=== PATIENT | male | born 1985 | race Caucasian/White ===

== ENCOUNTER 2022-05-26 20:33 | Emergency (ER) | payer OTHER ==
[2022-05-26 20:37] VITALS: BP 163/79; PULSE 63; RESP 18; TEMP 98.6; BMI 29.2
[2022-05-26 22:27] LABS: BASO % 0.6 % (0-2.0); HEMATOCRIT 48.1 % (35.4-49); HEMOGLOBIN 15.7 GM/dL (11.7-16.9); LYMPH % 34.4 % (8-40); MCH 29.2 pg (25.7-33.7); MCHC 32.6 g/dl (32.0-35.9); MEAN CELL VOLUME 89.4 fl (80-96); MONO % 7.2 % (3.8-10.2); NEUT % 56.8 % (42.8-82.8); PLATELET COUNT 336 10^3/uL (134-434); RBC 5.38 M/mm3 (4.00-5.60); RDW 12.7 % (11.9-15.9); WHITE BLOOD COUNT 6.5 K/mm3 (4.0-10.0)
[2022-05-26 22:34] LABS: INR 1.19 (0.83-1.09); PROTHROMBIN TIME (PATIENT) 13.7 SEC (9.7-13.0)
[2022-05-26 22:36] LABS: ACTIVATED PTT 35.2 SECONDS (25.2-36.5)
[2022-05-26 22:50] LABS: ALBUMIN 4.3 g/dl (3.4-5.0); CALCIUM 9.4 mg/dL (8.5-10.1)
[2022-05-26 22:53] LABS: CREATININE 0.8 mg/dL (0.55-1.3)
[2022-05-26 22:55] LABS: BILIRUBIN,TOTAL 0.7 mg/dL (0.2-1); TOT PROT 7.7 g/dl (6.4-8.2)
== END 2022-05-26 23:20 | disposition home or self-care (01) ==
LOC: JER 20:33
DX: K62.5 Hemorrhage of anus and rectum (principal)
CPT/HCPCS: 36415; 80053; 82272; 85025; 85610; 85730; 99283-25

== ENCOUNTER 2024-03-02 09:40 | Emergency (ER) | payer SELFPAY ==
[2024-03-02 09:50] VITALS: BP 170/96; PULSE 77; RESP 17; TEMP 99.1; BMI 32.9
[2024-03-02 11:42] LABS: BASO % 0.5 % (0-2.0); EOS % 0.2 % (0-4.5); HEMATOCRIT 47.5 % (35.4-49); HEMOGLOBIN 15.9 GM/dL (11.7-16.9); LYMPH % 23.5 % (8-40); MCH 29.6 pg (25.7-33.7); MCHC 33.3 g/dl (32.0-35.9); MEAN CELL VOLUME 88.7 fl (80-96); MEAN PLT VOLUME 8.8 fl (7.5-11.1); MONO % 3.9 % (3.8-10.2); NEUT % 71.9 % (42.8-82.8); PLATELET COUNT 290 10^3/uL (134-434); RBC 5.36 M/mm3 (4.00-5.60); RDW 12.8 % (11.9-15.9); WHITE BLOOD COUNT 6.8 K/mm3 (4.0-10.0)
[2024-03-02 12:01] LABS: POTASSIUM 4.1 mmol/L (3.5-5.1)
[2024-03-02 12:04] LABS: CALCIUM 9.5 mg/dL (8.5-10.1)
[2024-03-02 12:05] LABS: ALBUMIN 4.5 g/dl (3.4-5.0); BLOOD UREA NITROGEN 14.4 mg/dL (7-18); MAGNESIUM 2.3 mg/dL (1.8-2.4)
[2024-03-02 12:08] LABS: CREATININE 0.8 mg/dL (0.55-1.3)
[2024-03-02 12:09] LABS: BILIRUBIN,TOTAL 0.6 mg/dL (0.2-1); TOT PROT 8.3 g/dl (6.4-8.2)
[2024-03-02] MEDS ORDERED: DOXYCYCLINE HYCLATE 100 MG CAPSULE PO ONE (12:21)
[2024-03-02] MEDS: DOXYCYCLINE HYCLATE 100 MG CAPSULE PO ONE (12:27)
[2024-03-02 12:44] LABS: SYPHILIS W/ RPR CONF NON-REACTIVE (NONREACTIVE)
[2024-03-02 12:55] LABS: PH,URINE 5.5 (5.0-8.0); URINE APPEARANCE CLEAR; URINE BILIRUBIN NEGATIVE (NEGATIVE); URINE COLOR YELLOW; URINE GLUCOSE (UA) NEGATIVE (NEGATIVE); URINE KETONE NEGATIVE (NEGATIVE); URINE LEUK ESTERASE NEGATIVE (NEGATIVE); URINE NITRITE NEGATIVE (NEGATIVE); URINE PROTEIN TRACE (NEGATIVE); URINE UROBILINOGEN 0.2 mg/dL (0.2-1.0)
[2024-03-02 13:10] LABS: HIV INTERPRETATION NEGATIVE (NEGATIVE)
== END 2024-03-02 13:36 | disposition home or self-care (01) ==
LOC: JER 09:40
DX: R19.7 Diarrhea, unspecified (principal); R59.1 Generalized enlarged lymph nodes; R30.0 Dysuria; R10.32 Left lower quadrant pain; R50.9 Fever, unspecified
CPT/HCPCS: 36415; 80053; 81003; 83735; 85025; 86780; 86803; 87086; 87389; 87491; 87591; 99284-25